=== PATIENT | male | born 1935 | race Caucasian/White ===

== ENCOUNTER 2019-03-14 07:49 | Day surgery (SDC) | payer OTHER ==
--- NOTE | 2019-03-13 14:48 | EKG ---
Test Date: 2019-03-13 Test Time: 10:11:08 Senior Engineering Tech: BRIJESH MEASUREMENT RESULTS: Intervals: Rate: 62 [place]: 198 QRSD: 84 QT: 424 QTc: 430 [place]: P: 30 [place]: 198 QRS: 4 T: 43 INTERPRETIVE STATEMENTS: Normal sinus rhythm Normal ECG No previous ECG available for comparison Electronically Signed On 03-13-19 14:46:46 CDT by Александр Celestin
[2019-03-14] MEDS ORDERED: Ringers Lactate 1,000 ML IV ONE ×2 (08:22→10:48)
[2019-03-14] MEDS ORDERED: PROPOFOL 200 MG/20 ML VIAL IV ONE ×5 (08:25→10:57)
[2019-03-14] MEDS ORDERED: FENTANYL CITR 100 MCG/2 ML ONE (08:25)
[2019-03-14] MEDS ORDERED: LIDOCAINE 2% MPF 5 ML VIAL ONE (08:26)
[2019-03-14] MEDS: LIDOCAINE 1.5% W/EPI AMP 5 ML ONE ×2 (08:44→09:13)
[2019-03-14] MEDS ORDERED: MEPERIDINE HCL 25 MG/0.5 ML ONE (11:30)
--- NOTE | 2019-03-15 02:17 | OP ---
Date of Procedure: 03/14/2019 Surgeon: Ibeth Marinelli MD Preoperative Diagnoses: 1. 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 2. 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 Postoperative Diagnoses: Left jewish basal cell carcinoma and basal cell carcinoma of the tip of the nose. Procedure: 1. Excision BCC, nose, defect 2.5cm 2. Exicsion BCC left jewish, defect 2.1cm 3. Full-thickness skin graft from the left neck to the tip of the nose. Indication For Procedure: Mr. Godinez is an 83-year-old who presented to [facility] with a 7 mm crusted chronic lesion of the tip of the nose. A biopsy was performed by the casting machine operator helper confirming a sclerosing basal cell carcinoma. At the time of presentation, the patient clinically was well healed and there was no gross tumor. However, in light of the patient's diagnosis, formal excision was recommended to ensure clearance of the margins. Description Of Procedure: The patient was brought to the operating room. He was placed under monitored anesthesia care. The left jewish, nose, and left neck were injected with 8 mL of 1.5% lidocaine with epinephrine. The face and neck were then draped in sterile fashion and the left jewish was addressed first. An area around the sideburn was noted to have 2 punctate areas of crusting. The hair surrounding the area was trimmed with scissors and a fusiform incision was made encompassing the abnormal-appearing skin. A suture was placed in the anterior superior aspect of the ellipse and sent to pathology for frozen section. The Bovie electrocautery was used to provide hemostasis in the wound bed and attention was turned to the nose. The prebiopsy photographs from the casting machine operator helper were examined in order to aid in location of the site of disease. An approximately 1.5 cm round excision of the tip of the nose centered just left of midline was excised. A suture was placed at the superior most aspect indicating 12 o'clock and the specimen was sent to pathology. The left jewish lesion was confirmed to be as a basal cell carcinoma. The deep margins and peripheral margins were negative. However, the 3 o'clock margin was very close and decision was made to perform additional excision. A new 12 to 3 to 6 o'clock margin of approximately 2-3 mm width was incised using a scalpel. A suture was placed at the 12 o'clock aspect and the specimen was sent for permanent pathology. The lateral edge of the tissue flap of the surgical defect was undermined using Bovie electrocautery allowing for primary closure with a 5-0 fast-absorbing gut suture. Direct pressure was applied to the skin after closure to aid in hemostasis and bleeding was minimal. The deep margin of the nasal excision was negative, but the 12, 3, 6, and 9 o' clock margins peripherally were all positive. A new circular excision of 2-3 mm width circumferentially was undertaken. A suture was placed at 12 o'clock for orientation and the specimen was sent to pathology for frozen section analysis. On this new margin, there were isolated focal areas of positivity between the 1 and 5 o'clock margins. A third section was taken from the nose, extending from 12 to 3 to 6 o'clock. The width of the specimen was 2-3 mm. The specimen was oriented with a suture at 12 o'clock and sent to pathology for frozen section analysis. The final margin of the nasal location was then confirmed negative on frozen section and options for reconstruction were considered. The defect of the nose was approximately circular with a total defect size of 25 x 22 mm, encompassing the majority of the nasal tip, not involving the rim of the nostril and not significantly involving the nasal ala or fibrous tissue supporting the nostril. Given the size of the defect, consideration for paramedian forehead flap was made, but in light of the patient 's age and medical comorbidities, this was deferred with preference for skin graft placement. The left neck was selected as a donor site and a full- thickness skin graft was harvested using a scalpel. The donor site was cauterized to control bleeding and closed in a primary fashion using 5-0 fast- absorbing gut sutures. The skin graft was then cut approximately in half and the 2 pieces used to cover the medial and lateral halves of the surgical defect on the nose. The medial half was secured with running circumferential sutures through the defect. The lateral portion was carefully high crusted using a scalpel to allow for better fit to the defect site. The graft was then secured to the recipient site using 5-0 fast-absorbing gut. Two portions of the skin graft were then carefully sutured in the center of the defect. A Xeroform bolster was then applied and secured using radial 2-0 silk sutures. The patient 's face and neck were cleaned and dried. The patient was returned to care of Anesthesia for transportation to the recovery room and he will be discharged home later today in the care of his family and follow up with Dr. Marinelli in 10 days for removal of the bolster and evaluation of healing. MARCIO/ELIZABETH Voice ID: [id number] Report ID: [id number] [id number]
== END 2019-03-14 12:37 | disposition home or self-care (01) ==
LOC: OR 07:49
PROVIDERS: ATTEND Otolaryngology
PROC: 0HB1XZX Excision of Face Skin, External Approach, Diagnostic (ICD-10-PCS; 2019-03-14)
PROC: 0HR1X73 Replacement of Face Skin with Autologous Tissue Substitute, Full Thickness, External Approach (ICD-10-PCS; 2019-03-14)
PROC: 0HB4XZZ Excision of Neck Skin, External Approach (ICD-10-PCS; 2019-03-14)
PROC: 0HB1XZX Excision of Face Skin, External Approach, Diagnostic (ICD-10-PCS; principal; 2019-03-14 09:15)
DX: C44.319 Basal cell carcinoma of skin of other parts of face (principal); C44.311 Basal cell carcinoma of skin of nose
CPT/HCPCS: 11643 ×2; 15260; 93005; 88331; 88332; 88305; J2704 ×5; J3010; J2001; J2175